=== PATIENT | male | born 1970 | race African-American/Black ===

== ENCOUNTER 2017-10-16 15:56 | Emergency (ER) | payer OTHER ==
[~2017-10-16] VITALS: Ht 177.8 cm; Wt 74.8 kg
--- NOTE | 2017-10-16 16:28 | Emergency Room Report ---
History of Present Illness General Chief Complaint: General Complaint Source: Patient Present Illness HPI 39-year-old male patient presents ER requesting evaluation for possible sexually transmitted infection. Reports that the girl that he is seeing was recently treated for STI. Denies any symptoms. Denies canal discharge. Denies fever, chest pain, shortness breath, abdominal pain, flank pain. Denies dysuria, hematuria, testicular swelling or pain, penile pain or swelling. Denies penile rash. Denies other acute symptoms. Allergies: Coded Allergies: No Known Allergies (Unverified , 10/16/17) Patient History Past Medical History: see triage record Reviewed Nursing Documentation: PMH: Agreed; PSxH: Agreed Nursing Documentation-PMH Past Medical History: No Stated History Review of Systems All Other Systems: negative except mentioned in HPI Physical Exam Vital Signs Date Time Temp Pulse Resp B/P (MAP) Pulse Ox O2 Delivery O2 Flow Rate FiO2 10/16/17 16:09 98.7 66 16 118/70 98 Room Air 98.8 Sp02 EP Interpretation: reviewed, normal General Appearance: well appearing, no apparent distress, alert, GCS 15, non- toxic Head: normocephalic, atraumatic Neck: full range of motion Respiratory: lungs clear, normal breath sounds, no rhonchi, no respiratory distress, no accessory muscle use, no wheezing, speaking full sentences Cardiovascular #1: regular rate, rhythm, no edema Gastrointestinal: non tender, soft, no mass, non-distended, no guarding, no rebound Genitourinary: no CVA tenderness, deferred Musculoskeletal: back normal, digits/nails normal, gait/station normal, normal range of motion, non-tender Neurologic: alert, oriented x3, responsive, motor strength/tone normal, sensory intact Psychiatric: mood/affect normal Skin: no rash Medical Decision Making PA Attestation Dr. Gray is my supervising Physician whom patient management has been discussed with. Diagnostic Impression: Primary Impression: Encounter for assessment of sexually transmitted disease exposure ER Course Pt. presents to the ED c/o STI. Ddx considered but are not limited to gonorrhea, chalmydia, cystitis, pylonephritis. Vital signs: are WNL, pt. is afebrile ER COURSE: denies dysuria, hematuria, frequency, urgency. Low suspicion for UTI. does not require U at this time. Denies penile rash or sore. The suspicion for sepsis, does not require treatment at this time. Follow-up with clinic and/or PCP for further testing and treatment. Needs testing for other STI is at that time. Treated patient with Azithromycin and Rocephin for gonorrhea and chlamydia. Form patient is to follow-up with STI clinic and her primary care provider for further testing and treatment. No sexual activity for 2 weeks. Wear condoms during sex. drink plenty fluids. DISCHARGE: Advised to use safe sex practices including but not limited to use of condoms. Instructed patient to follow up with STI clinic and/or PCP for future STI treatment and prevention. Instructed patient to inform partner of need for treatment to prevent future infection. Patient is resting comfortably, in no acute distress, nontoxic appearing, talking without difficulty. Patient to take medications as instructed Will provide with patient care instructions and any necessary prescriptions. Care plan and follow-up instructions provided. Patient instructed to follow-up with primary care provider in 3 - 5 days. Patient questions asked and answered. Patient reports understanding and agreement to treatment plan. ER precautions given. Patient instructed to return to ER immediately for any new or worsening of symptoms including but not limited to increasing SOB, persistent fever. - Please note that this Emergency Department Report was dictated using [employer] program coordinator technology software, occasionally this can lead to erroneous entry secondary to interpretation by the dictation equipment. Last Vital Signs Date Time Temp Pulse Resp B/P (MAP) Pulse Ox O2 Delivery O2 Flow Rate FiO2 10/16/17 16:09 98.7 66 16 118/70 98 Room Air 98.8 Disposition: HOME, SELF-CARE Condition: Stable Patient Instructions: Sexually Transmitted Disease, [id number] Additional Instructions: Followup with primary care provider and followup with STI clinic for further evaluation and treatment as needed. Drink plenty of fluids. Wear condoms during sex. no sexual activity for 2 weeks. Patient questions asked and answered. ER precautions given, patient instructed to return to ER immediately for any new or worsening of symptoms. Doron Hardwick Oct 16, 2017 16:28
[2017-10-16] MEDS ORDERED: Lidocaine 1% MPF 10mg/ml 5ml INJ ONE (16:30)
[2017-10-16] MEDS ORDERED: Azithromycin 250mg tab ORAL ONE (16:30)
[2017-10-16 16:53] VITALS: BP 118/70
[2017-10-16 16:57] VITALS: BP 118/70
== END 2017-10-16 17:10 | disposition home or self-care (01) ==
LOC: EMR 16:25
DX: Z11.3 Encounter for screening for infections with a predominantly sexual mode of transmission (principal)
CPT/HCPCS: 96372; 99283; J0696; Q0144

== ENCOUNTER 2019-03-30 13:31 | Emergency (ER) | payer SELFPAY ==
[~2019-03-30] VITALS: Ht 180.3 cm; Wt 72.6 kg
[2019-03-30 14:10] VITALS: BP 132/81
--- NOTE | 2019-03-30 14:10 | NUR ---
ED Nurse Note: Patient walked in to ER reports that he wanted STD check. Stated that he might have gotten something from his girlfriend. Denies any pain during urination. Afebrile. VSS.
--- NOTE | 2019-03-30 14:55 | NUR ---
ED Nurse Note: ERPA at bedside.
[2019-03-30] MEDS ORDERED: METRONIDAZOLE500 MG ORAL (15:05)
--- NOTE | 2019-03-30 15:05 | Emergency Room Report ---
History of Present Illness General Chief Complaint: Male Urogenital Problems Source: Patient Present Illness HPI 49-year-old male presents to the emergency department complaining of recent exposure with trichomonas. Patient reports his girlfriend tested positive and just received treatment and he is requesting treatment for trichomonas as well. He denies penile discharge, dysuria, hematuria, testicular pain or swelling. Patient denies fevers, chills, abdominal pain, swollen tender lymph nodes or joint pain. Denies rashes or genital lesions. Patient denies any other symptoms at this time and denies any significant past medical history. Allergies: Coded Allergies: No Known Allergies (Unverified , 10/16/17) Patient History Past Medical History: see triage record Past Surgical History: none Pertinent Family History: none Reviewed Nursing Documentation: PMH: Agreed; PSxH: Agreed Nursing Documentation-PMH Past Medical History: No Stated History Review of Systems All Other Systems: negative except mentioned in HPI Physical Exam Vital Signs Date Time Temp Pulse Resp B/P (MAP) Pulse Ox O2 Delivery O2 Flow Rate FiO2 03/30/19 14:01 98.2 60 18 132/81 (98) 99 Room Air Sp02 EP Interpretation: reviewed, normal General Appearance: no apparent distress, alert, GCS 15, non-toxic Head: normocephalic, atraumatic Eyes: bilateral eye normal inspection, bilateral eye PERRL ENT: hearing grossly normal, normal voice Neck: full range of motion Respiratory: lungs clear, normal breath sounds, speaking full sentences Cardiovascular #1: regular rate, rhythm, no edema Gastrointestinal: normal bowel sounds, non tender, soft, non-distended, no guarding Rectal: deferred Genitourinary: normal inspection, no CVA tenderness, deferred Musculoskeletal: normal range of motion, gait/station normal, non-tender Neurologic: alert, motor strength/tone normal, oriented x3, sensory intact, responsive, speech normal Psychiatric: judgement/insight normal Skin: no rash Lymphatic: no adenopathy Medical Decision Making PA Attestation Dr. Quintana Is my supervising Physician whom patient management has been discussed with. Diagnostic Impression: Primary Impression: Venereal disease contact ER Course 49-year-old male presents to the emergency department complaining of recent exposure with trichomonas. Patient reports his girlfriend tested positive and just received treatment and he is requesting treatment for trichomonas as well. He denies penile discharge, dysuria, hematuria, testicular pain or swelling. Patient denies fevers, chills, abdominal pain, swollen tender lymph nodes or joint pain. Denies rashes or genital lesions. Patient denies any other symptoms at this time and denies any significant past medical history. Ddx considered but are not limited to UTi , Urethritis, LGV, STI, Stone, Cystitis, prostatitis Vital signs: are WNL, pt. is afebrile H&PE are most consistent with positive exposure with partner infected with trich. ORDERS: - None required at this time . ED INTERVENTIONS: - None required at this time. DISCHARGE: At this time pt. is stable for d/c to home. Will provide printed patient care instructions, and any necessary prescriptions. Care plan and follow up instructions have been discussed with the patient prior to discharge. Last Vital Signs Date Time Temp Pulse Resp B/P (MAP) Pulse Ox O2 Delivery O2 Flow Rate FiO2 03/30/19 14:10 98.2 60 18 132/81 99 Room Air Disposition: HOME, SELF-CARE Condition: Stable Referrals: NOT CHOSEN IPA/MD,REFERRING (PCP) Patient Instructions: Trichomoniasis Additional Instructions: Take medications as directed. ! Do not drink alcohol while taking Flagyl/Metronidazole as this will cause a skin reaction. Follow up with a Primary Care Provider in 3-5 days, even if your symptoms have resolved. Return sooner to ED if new symptoms occur, or current symptoms become worse. - Please note that this Emergency Department Report was dictated using [employer] solderer technology software, occasionally this can lead to erroneous entry secondary to interpretation by the dictation equipment. Cammie Hinojosa Mar 30, 2019 15:05
[2019-03-30 15:14] VITALS: BP 132/81
--- NOTE | 2019-03-30 15:14 | NUR ---
ED Nurse Note: Pt cleared by ERMD for discharge. DC instructions/prescription was given and explained to pt and verbalized understanding of teachings. All medical deviecs such as ID band removed. Pt is AAO x4, ambulatory and left with all personal belongings.
== END 2019-03-30 15:14 | disposition home or self-care (01) ==
LOC: EMR 14:38
DX: Z20.2 Contact with and (suspected) exposure to infections with a predominantly sexual mode of transmission (principal)
CPT/HCPCS: 99282